=== PATIENT | female | born 1995 | race Caucasian/White ===

== ENCOUNTER → 2019-01-22 | Outpatient (CLI) | payer OTHER, SELFPAY ==
[2019-01-22 10:52] LABS: Hematocrit 40.5 % (37-47); Hemoglobin 13.9 g/dL (12.0-15.0); Mean Corp Hgb Conc 34.3 g/dL (32-36); Mean Corpuscular Hgb 30.2 pg (27.0-32.0); Mean Platelet Vol. 10.3 fl (6.2-12.0); Platelet Count 205 K/mm3 (150-450); RBC Distribution Width SD 38.6 fl (35.1-43.9); White Blood Count 10.7 K/mm3 (4.4-11.0)
[2019-01-22 11:07] LABS: Glucose Challenge Gest 1H 50g 183 mg/dL (70-140)
== END | disposition home or self-care (01) ==
LOC: WOBLAB 09:54
PROVIDERS: Visit Provider Obstetrics & Gynecology
DX: Z34.83 Encounter for supervision of other normal pregnancy, third trimester (principal)
CPT/HCPCS: 36415; 82950; 85027

== ENCOUNTER → 2019-01-30 | Outpatient (CLI) | payer OTHER, SELFPAY ==
[2019-01-30 07:34] LABS: Glucose GTT-Gestation. Fasting 110 mg/dL (<105)
[2019-01-30 10:18] LABS: Glucose GTT-Gestational 2 Hr 173 mg/dL (<165)
[2019-01-30 10:28] LABS: Glucose GTT-Gestational 1 Hr 173 mg/dL (<190)
[2019-01-30 10:46] LABS: Glucose GTT-Gestational 3 Hr 155 L (<145)
== END | disposition home or self-care (01) ==
LOC: LAB 06:53
PROVIDERS: Referring Provider Obstetrics & Gynecology; Visit Provider Obstetrics & Gynecology
DX: O24.912 Unspecified diabetes mellitus in pregnancy, second trimester (principal); Z3A.00 Weeks of gestation of pregnancy not specified
CPT/HCPCS: 36415; 82951; 82952

== ENCOUNTER 2019-03-16 15:00 | Outpatient (RCR) | payer OTHER, SELFPAY | END 2019-03-17 23:59 | LOC: DC 15:00 | PROVIDERS: Visit Provider Obstetrics & Gynecology | DX: O24.419 Gestational diabetes mellitus in pregnancy, unspecified control (principal) | CPT/HCPCS: 97802; G0108 ==

== ENCOUNTER 2019-03-23 16:14 | Outpatient (RCR) | payer OTHER, SELFPAY | END 2019-03-23 23:59 | disposition home or self-care (01) | LOC: DC 16:14 | PROVIDERS: Visit Provider Obstetrics & Gynecology | DX: Z71.3 Dietary counseling and surveillance (principal); O24.419 Gestational diabetes mellitus in pregnancy, unspecified control ==

== ENCOUNTER → 2019-03-27 13:22 | Outpatient (CLI) | payer OTHER, SELFPAY | PROVIDERS: Visit Provider Obstetrics & Gynecology | DX: Z36.85 Encounter for antenatal screening for Streptococcus B (principal) | CPT/HCPCS: 87081 ==

== ENCOUNTER 2019-04-09 19:40 | Inpatient (IN) | payer OTHER, SELFPAY ==
[2019-04-09] MEDS: Lactated Ringers 1,000 ML 50 ML IV (21:00)
[2019-04-09 21:16] LABS: Absolute Lymphocyte Count 2.68 X10^3/uL (0.83-4.51); Absolute Neutrophil Count 8.9 X10^3/uL (2.0-7.7); Basophil# 0.02 X10^3/uL; Basophil% 0.2 % (0-1); Eosinophil# 0.13 X10^3/uL; Hematocrit 38.4 % (37-47); Hemoglobin 12.6 g/dL (12.0-15.0); Lymphocyte # 2.68 X10^3/ul (4.0); Lymphocyte % 21.2 % (19-41); Mean Corp Hgb Conc 32.8 g/dL (32-36); Mean Corpuscular Hgb 27.3 pg (27.0-32.0); Mean Corpuscular Volume 83.3 fL (81-99); Mean Platelet Vol. 11.5 fl (6.2-12.0); Monocyte# 0.82 X10^3/uL; Monocyte% 6.5 % (0-10); NRBC Flagged by Analyzer 0 % (0-5); Neutrophil # 8.85 X10^3/uL (2.7-7.7); Neutrophil % 70.1 % (47-70); Platelet Count 201 K/mm3 (150-450); RBC Distribution Width SD 38.5 fl (35.1-43.9); Red Blood Count 4.61 M/mm3 (4.2-5.4); White Blood Count 12.6 K/mm3 (4.4-11.0)
[2019-04-09 21:32] VITALS: BMI 26.6
[2019-04-09] MEDS: miSOPROStol 25 MCG TABLET PO (22:50)
[2019-04-09 23:05] LABS: Bedside Glucose 82 mg/dL (70-110)
[2019-04-09 23:05] LABS: Bedside Glucose 92 mg/dL (70-110)
--- NOTE | 2019-04-09 23:47 | PCM.HP.BLA ---
History and Physical Date of Admission: 04/09/19 ACOG ANTEPARTUM RECORD - HISTORY AND PHYSICAL (04/09/2019) Name: JO HURLEY OB Physician: MONIQUE Belfield's Physician: UNDECIDED ...................................................................... : 1995 Age: 23 Address: [address] [place] [address] Phone: H) [phone] Insurance Carrier: [employer] [id number] Emergency Contact: GAEL GIMENEZ [phone] ...................................................................... Jo is a 23 yo at 39w0d gestation by 9w4d US being admitted for cervical ripening/IOL for dx of gestational diabetes managed with diet and PO Glyburide with minimal to moderate control; she is group B negative and O positive Final HENEA: 04/16/19 By Ultrasound: 90w4d PARITY: (G-Total Pregnancies P-Fullterm,Premature,Induced AB,Spont AB, Ectopics, Multiple,Living) HEENA CONFIRMATION: By LMP: 07/04/18 By First Ultrasound Exam: 04/16/19 Final HEENA: 04/16/19 OB PROBLEM LIST: Chicken Pox vaccine only Childbirth ed classes encouraged EPDS = 8 Gestational diabetes Going to [place] next week, plans return to [place] in , eventual move to [place] after delivery. Previously declined CF testing, msAFP. Progenity Trasferred in at 20 wks. EDC confirmed by 9 wk sono, labs done at prior provider's ofc. Undecided feeding method. ALLERGIES: No Known Drug Allergies MEDICATIONS: glyburide 1.25 mg tablet 1 tab PO qam promethazine 12.5 mg tablet one tablet every 6 hrs as needed pyridoxine (vitamin B6) 25 mg tablet one tablet TID Unisom (doxylamine) 25 mg tablet 1/2 tablet PO BID SOCIAL HISTORY: Smoking - Never Alcohol Use - denies drinking Diet - moderate, balanced diet Lifestyle - moderate stress lifestyle, single and recent relocation Exercise - minimal Employer - [employer] Job Description - Illicit Drug Use - denies use of street drugs Sexual Activity - [employer] Residence - Lives with SO's dad Place of - [place], [place] Spouse-Sig Other Name - Geoff Kingsley Spouse-Sig Other Occupation - Pipeline worker Spouse-Sig Other Phone No - [phone] PRIOR DELIVERY HISTORY DEL DATE GEST LAB WT LB WT OZ TYPE ANES LABOR TX ANTEPARTUM FLOW CHART VISIT GE RTC FU F F LA U U DATE WK MD WKS HT PN HR M SS BP ED WT LA GL D EF ST __ ____ ___ __ __ ___ __ __ __ ___ __ __ __ ___ __ 17 Mar CH 6 35 V + + 116/74 sl 164 - - 1+ 25 hi 10 Mar SHM 1 34 V + + 110/62 sl 163 tr - 1+ 25 -4 Feb CH 2 35 V + + 102/80 162 tr - 10 Feb CH 2 31 + + 102/80 0 159 tr - 03 Mar 17 SHM 1 30 + + 94/76 0 158 tr + 15 Feb 13 SHM 3 29 V + + 128/80 sl 159 - 3+ 07 Feb 12 SHM 3 28 ? + + 124/72 sl 156 - 3+ 17 Jan 09 ELB 4 24 - + + 116/70 0 153 tr - 13 Sep 20 SHM 4 20 + + 108/76 0 150 - - 09 Sep 19 SHM 1 V on + 110/74 0 147 tr - ANTEPARTUM NOTE(S): Apr 03 2019: Blood sugar log copied for review. Mar 27 2019: Uncomfortable, GBS today, LARC declined Mar 09 2019: feeling well Feb 24 2019: feeling well. Feb 17 2019: feeling well. Jan 30 2019: doing well, records provided, 3hr gtt today Jan 22 2019: doing well, glucola today Jan 01 2019: see prog note Nov 28 2018: doing well, comp u/s today. jlb Nov 24 2018: NOB transfer visit COMPREHENSIVE ANTEPARTUM NOTE(S): Apr 03 2019: Jo is here for her NST for GDM (Glyburide) at 38 w 1 d. She states that she feels alright and is anxious for the the baby to be born. Blood sugars copied for review. EEFM/NST explained. Baby is very active. She reports occasional mild cramping. Denies spotting/LoF. Slight edema noted below knees. NST reactive, read per Govind Waldrop CNM. Four ctx's noted during NST, last 60 seconds, Jo states that she did not feel these ctx's. AW Apr 03 2019: Reports +FM. FHR 140. Diabetic log reveals most fasting BS 80-90. Postprandials 100-140 max. Understands she doesnt eat the healthiest. Wants induced at 39.0 per her recommendation with REKHA. Will collaborate for decision making with REKHA. Unable to strip membranes due to funneling cervix, understands will need to come in for cervical ripening. Scheduled 04/09/19 at 7pm. -CH Mar 30 2019: H taken to OB. tkg Mar 27 2019: Copy of blood sugars for review with Dr DA SILVA. She declines LARC at this time. She would like to discuss further with Dr DA SILVA. We reviewed FM, SROM, and labor. Very uncomfortable at this point and reviewed normal discomforts and when to call. LMT Mar 27 2019: GBS obtained. Blood sugars 68% at target since last visit, however improved the last week 82%. Will add Glyburide 1.25mg qam. US today. EFW 2548 gms Mar 09 2019: (*) Here for routine PNV.Has blood sugar logs which reveal blood sugars are better than before, but still elevated . has been tracking her diet and doing much better, but had her start logging all her food. She's still eating out every single day including [employer], [place] [employer], and deep fried bar food as well as a lot of pastas and breads at home. Educated that although she is doing better, she needs to try to decrease fast food and eating out as well as switching carbs to whole grain.. +FM. FHR 148. Discussed to call with any questions or concerns. Danger signs of decreased FM, bleeding, or regular UC. In 2 weeks will return for routine PNV and GBS swab. Education on GBS and reason for collection. Understands may swab herself in bathroom prior to urinating or provider can do swab for her and offer cervical exam at that time. Discussed avoiding being overdue and membrane sweeping after 38 weeks as an option. - CH Mar 08 2019: (*) Here for routine PNV. Has blood sugar logs which reveal . has been tracking her diet and doing much better. +FM. FHR . Discussed to call with any questions or concerns. Danger signs of decreased FM, bleeding, or regular UC. In 2 weeks will return for routine PNV and GBS swab. Education on GBS and reason for collection. Understands may swab herself in bathroom prior to urinating or provider can do swab for her and offer cervical exam at that time. - Feb 24 2019: here today for routine PNV with BS logs. Elevated fastings and post-prandials still. States just went to talk to jack machine operator yesterday and just started actually watching her diet today. Yesterday had an apple and peanut butter for breakfast, [employer] for lunch, and McDonal[employer] for dinner. Her and SO definitely know this is wrong and swear as of today they are watching what they eat and will keep a diet log to track food intake. For subsequent visits will bring both BS logs and diet logs to review with Dr. Ernst. Educated on exercise, even a 10 minute walk after meals. FM+ FHR 138. Will return in 2 weeks for routine PNV - Feb 17 2019: Fasting blood sugars elevated. Discussed evening snack, avoidance of added sugars. Few postprandial elevations. f/u with DM education this week. Jan 30 2019: Gestational DM. Rx glucometer, test strips, lancets - reviewed fasting and 1h postprandial blood sugar checks. Reviewed associated risks for GDM including hypoglycemia - potential short and superintendent terminal effects for neurologic development, risk for shoulder dystocia and potential sequelae including loss of life. Refer to jack machine operator. Jan 22 2019: Ok to fly to [place] and [place] later this month and early Feb. Discussed VTE prevention. PTL, ROm, FM precautions. Labor analgesia reviewed. Jan 01 2019: Jo is here today for her visit. Patient states that she has been doing well. Glucola instructions provided and reviewed with patient. Patient states that she will be needing refill on Vitamin B and Unisom which previous provider was prescribing. Scripts updated in medication list and pharmacy updated on chart. jlb Nov 28 2019: Anatomy scan wnl. AGA, FEMALE, POSTERIOR placenta. Nov 24 2018: Jo is here at 19 w 4 d for her NOB transfer visit, she is a with an HEENA of 04/16/2019. FOB/SO, Geoff Kingsley, accompanies her today; this is also his first child. He seems to be supportive. Geoff is a pipe telecommunications line installer, so his job moves them around frequently. They are currently staying with Geoff's father in [place], but next week they will be going to [place] for his job, and will live in a camper. Jo plans to return to the area in January, and deliver at [facility]. She plans a move back to [place] after her post- period. Discussed air travel and long car ride precautions, including getting up to move around often, wearing compression hose, and staying well hydrated. Office practice patterns reviewed, her labs were drawn at her previous provider. Office educational materials provided today, including a copy of What to Expect...; reviewed emergencies/danger signs to report, and common OTC medications approved not approved for use during . Round ligament pain, and reporting suspected UTI also discussed. Delivery at [facility] with an epidural is planned, and at this point she is undecided about feeding method. If she decides to breastfeed, getting a class either here in the office or through [facility] strongly encouraged. Office childbirth ed classes encouraged. Jo states that she had a lot of N/V during her first trimester, and that some still lingers. She has been taking prescribed Vitamin B6 25 mg TID, and Unisom 25 mg 25 mg 1/2 tab in the morning and mid-afternoon; she also takes OTC Unisom at bedtime, and has a prescription for Promethazine 12.5 mg one q 6 hrs prn. Encouraged small frequent meals with protein included throughout the day and adequate water hydration of at least 1 gallon per 24 hours. She eats carb rich foods when nauseated. Jo states that she has been having difficulty with tolerating her vitamin, encouraged to try taking it just before bedtime with a full glass of water. Discussed that she may also try two children's [place]'s Chewables a day until her nausea resolves. Reviewed need for DHA in her vitamin before the beginning of her third trimester. Jo is a non-smoker, and denies use of drugs or ETOH. Genetic Screening form completed, no significant history noted. She declined at her previous health care provider, as well as today, CF testing and msAFP; consent signed as such. EPDS = 8 today. She denies history of depression/anxiety. Has tattoos and some piercings, advised no new tattoos or piercings during . Water and dietary needs for reinforced, including caloric needs, recommended weight gain. and limiting caffeine to one cup a day. Printed guide for food safety provided with review. Encouarged physical activity, such as walking, for 30 minutes 5 x/week. Kegel exercises explained. Lifting restrictions discussed. Jo states that she understands all information provided during NOB visit, and she has no questions following same. Plans 4-D US in [place] on Saturday this week. AW REVIEW OF SYSTEMS: GENERAL - Denies fever, or chills SKIN - Denies rash, new skin lesions, or change in moles EYES - Denies blurred vision, or change in visual acuity EARS - Denies ear pain, or difficulty hearing NOSE - Denies nasal congestion, discharge, or bleeding MOUTH - Denies sore throat, or difficulty swallowing NECK - Denies pain or swelling RESPIRATORY - Denies shortness of breath, cough, wheezing CARDIOVASCULAR - Denies palpitations, chest pain, orthopnea, PND, peripheral edema, syncope or claudication GASTROINTESTINAL - Denies nausea, vomiting, diarrhea, constipation, Denies abdominal pain, melena and or bright red blood GENITOURINARY - Denies dysuria, frequency of urination, urgency, or hesitancy MUSCULOSKELETAL - Denies joint or muscle pain, or back pain NEUROLOGICAL - Denies localized numbness, weakness, or tingling PSYCHIATRIC - Denies depression, anxiety, substance abuse or suicide attempts ENDOCRINE - Denies heat or cold intolerance, weight loss or gain, increasing thirst HEMATO-IMMUNOLOGIC - Denies easy bruising, bleeding, oral ulcerations or recurrent infections GENETICS SCREENING: Age 35+ years: No Thalassemia: No Neural Tube Defect: No Down Syndrome: No TULIO-SACHS: No Sickle Cell Disease: No Hemophilia: No Musc. Dystrophy: No Cystic Fibrosis: No-declines screening [place] Chorea: No Mental Retardation: No Fragile X: No Other genetic: No Other defects: No SABs/still births: No Drugs since LMP: No INFECTION HISTORY: High risk AIDS: No High risk Hepatitis: No Exposed to TB: No Exposed to Herpes: No Rash/viral illness since LMP: No History of STD: No MENSTRUAL HISTORY: *Menses Amount/Duration: 4-5 DAYSMenses Regularity: RegularFrequency: 28BCP's at Conception: NoMenarche (Age Onset): 13* PAST SUMMARY: PARITY: 1. Total Pregnancies............ 1 2. Full Term Pregnancies........ 0 3. Premature.................... 0 4. Abortions - Induced.......... 0 5. Abortions - Spontaneous...... 0 6. Ectopics..................... 0 7. Multiple Births.............. 0 8. Living Children.............. 0 Labs for : JO HURLEY since 07/20/2018 ORDER DATEIN DESCRIPTION VALUE UNITS RANGE A+ COMMENT BEDSIDE GLUCOSE 04/09/19 NOTE Original Ordering Provider: NANCY Stephenson BEDSIDE GLU 82 mg/dL 70-110 MANAGEMENT OF PATIENT CARE PER NURSING PROTOCOL NOTE Original Ordering Provider: NANCY Stephenson BEDSIDE GLU 92 mg/dL 70-110 MANAGEMENT OF PATIENT CARE PER NURSING PROTOCOL TYPE AND SCREEN 04/09/19 Reason for Type AND Screen/Red Cells: Labor [facility]~[address] [place], [address]~ BLOOD TYPE GEL O POSITIVE N ANTIBODY SCREEN NEGATIVE N CBC W/DIFF, AUTOMATED 04/09/19 NOTE Original Ordering Provider: NANCY Stephenson WBC 12.6 K/mm3 4.4-11.0 H RBC 4.61 M/mm3 4.2-5.4 HGB 12.6 g/dL 12.0-15.0 HCT 38.4 % 37-47 MCV 83.3 fL 81-99 MCH 27.3 pg 27.0-32.0 MCHC 32.8 g/dL 32-36 RDW CV 13.0 % 11.6-14.6 RDW SD 38.5 fl 35.1-43.9 PLT 201 K/mm3 150-450 MPV 11.5 fl 6.2-12.0 NEUT% 70.1 % 47-70 H LY% 21.2 % 19-41 MONO% 6.5 % 0-10 EO% 1.0 % 0-5 BASO% 0.2 % 0-1 IM GRAN % 1.000 % 0.0-0.9 H IG% - Immature Granulocytes (promyelocytes, myelocytes and metamyelocytes) > 1% indicates that a LEFT SHIFT is Present. ABSOLUTE NEUT 8.9 X10 3/uL 2.0-7.7 H ABSOLUTE LYMPH 2.68 X10 3/uL 0.83-4.51 NRBC, FLAGGED 0 % 0-5 CULTURE, GROUP B STREPTOCOCCUS 03/27/19 NOTE Original Ordering Provider: Irma Ernst Comments: VAGINAL/RECTAL DAVID Culture Group B Beta Streptococcus is not isolated. Reviewed by IRMA GESTATIONAL GTT 3HR 100G 01/30/19 NOTE Original Ordering Provider: Irma Ernst GLU GTT-FASTING 110 mg/dL <105 H GLUCOSE TOLERANCE TEST FOR Reference Interval GESTATIONAL DIABETES Fasting <105 mg/dL 1 hour <190 mg/dl 2 hour <165 mg/dl 3 hour <145 mg/dl GLU GTT- 1HR 173 mg/dL <190 GLU GTT- 2HR 173 mg/dL <165 H GLU GTT- 3HR 155 L <145 H Reviewed by IRMA GLUCOSE CHALLENGE GEST 1H 50G 01/22/19 NOTE Original Ordering Provider: Irma Ernst GLU GEST 50G 1H 183 mg/dL 70-140 H Reviewed by IRMA CBC-COMPLETE BLOOD CNT NO DIFF 01/22/19 NOTE Original Ordering Provider: Irma Ernst WBC 10.7 K/mm3 4.4-11.0 RBC 4.60 M/mm3 4.2-5.4 HGB 13.9 g/dL 12.0-15.0 HCT 40.5 % 37-47 MCV 88.0 fL 81-99 MCH 30.2 pg 27.0-32.0 MCHC 34.3 g/dL 32-36 RDW CV 12.0 % 11.6-14.6 RDW SD 38.6 fl 35.1-43.9 PLT 205 K/mm3 150-450 MPV 10.3 fl 6.2-12.0 Reviewed by IRMA GC-Chlamydia 09/30/18 Chlamydia NEG Negative GC NO GROWTH No Growth Reviewed by IRMA Drug Screen 09/02/18 Marijuana NEG Negative Cocaine NEG Negative Amphetamines NEG Negative Barbituates NEG Negative Reviewed by NIELS Initial OB Labs 09/02/18 Blood Type O Rh Type POS Antibody Screen NEG Negative Hemoglobin Initial OB 15.3 Hematocrit Initial OB 44 PLT 226 Rubella IMMUNE Immune VDRL NON-REACTIVE Non Reactive HBsAg NEG Negative HIV Test NEG Negative Reviewed by NIELS PROVIDER SIGNATURE ( REQUIRED) PHYSICAL EXAMINATION General Appearence: 23 yo female in no acute distress Vital Signs: AF, VSS Heart: RRR without rubs or gallops Lungs: CTA x 2 Breasts: deferred Abdomen: gravid Pelvis: Cervix:1/60/-3 at 2117 per RN Presentation: cephalic Fetus: Size: AGA Movement: present Heart: 145 baseline, moderate variability, + accels, no decels upon admission to unit UCs: Q 5-8 minutes Impression: 23 yo at 39w0d gestation by 9w4d Gestational diabetes on Glyburide Group B negative O pos Plan: Admitted for cytotec cervical ripening/IOL Dr. Ernst to assume care in AM.
[2019-04-10 03:46] LABS: Bedside Glucose 84 mg/dL (70-110)
[2019-04-10] MEDS: miSOPROStol 25 MCG TABLET 50 MCG PO (03:48)
[2019-04-10] MEDS: fentaNYL 100 MCG/2 ML Ampul IV (04:47)
[2019-04-10 07:51] LABS: Bedside Glucose 75 mg/dL (70-110)
[2019-04-10] MEDS: Lactated Ringers 500 ML 999 ML IV ×2 (08:54→12:09)
--- NOTE | 2019-04-10 09:00 | PCM.PN.BLA ---
Progress Note LABOR PROGRESS NOTE Assumed care of patient at 0730h from Micaela Stephenson CNM. Patient reports contractions intensifying and requests epidural. AVSS GEN - NAD, AAO x 3 FHR 130, moderate variability, +accelerations, no decelerations SVE 4/80/-2 per RN exam TOCO 3/10 min A/P: 23yo G1 @ 39wga, hx GDMA2 in active labor s/p cytotec, Cat I FHR -Ruptured spontaneously this morning -Blood glucose controlled -Epidural per patient request -Maternal and statuses reassuring
[2019-04-10] MEDS: fentaNYL-bupivacaine (epidural) 100 ML BAG EPIDURAL ×2 (09:44→14:09)
[2019-04-10] MEDS: Ondansetron 4 MG/2 ML Vial IV (11:00)
[2019-04-10 11:56] LABS: Bedside Glucose 77 mg/dL (70-110)
[2019-04-10] MEDS: Amnioinfusion- 0.9% NS 1,000 ML IV.SOLN. 1000 ML INTRA-UTER (13:17)
[2019-04-10 14:00] LABS: Bedside Glucose 67 mg/dL (70-110)
[2019-04-10 15:06] LABS: Bedside Glucose 80 mg/dL (70-110)
[2019-04-10] MEDS: Oxytocin 30 units/NS 500 ml 30 UNITS/500 ML IV.SOLN 334 UNITS IV (15:52)
--- NOTE | 2019-04-10 17:19 | PCM.OPRPT ---
Problem List (1) 39 weeks gestation of Status: Acute (2) (spontaneous vaginal delivery) Status: Acute Report of Operation Date of Procedure: 04/10/19 Pre-Operative Diagnosis: 39 weeks gestation, gestational diabetes Post-Operative Diagnosis: 39 weeks gestation, gestational diabetes Surgery/Procedure Performed:: Description of Surgical Findings:: Patient was FD/+3 station and pushed to deliver a vigorous female over an intact perineum. was placed on the maternal abdomen and further attended by nursery personnel. The cord was doubly clamped and cut. Cord blood was obtained. The placenta delivered spontaneously and appeared intact on inspection. A right labial laceration was repaired with 3-0 Vicryl Rapide. Good hemostasis. perineum intact Uterus at 3 fw below umbilicus. Sponge and needle count correct x 2. Vaginal Delivery Maternal Presentation: Medically Indicated Induction Method of Induction: Cytotec Amniotic Membrane Rupture Type: Spontaneous Rupture of Membrane time: 0836h 04/10/19 Amniotic Fluid Description: Clear Final HEENA: 04/17/19 Final HEENA Source: US <20 weeks Gestational age: 39 Weeks and 0 Days Date of Procedure: 04/10/19 Surgery/ Procedure Performed: Spontaneous Vaginal Delivery Anesthesiologist: Haley Flores Type of Anesthesia: Epidural Presentation: Vertex Placental Delivery Description: Spontaneous Placenta Disposition: Routine to Lab Cord Vessel Description: 3 Vessels Cord Entanglement: None Drain: Siegel to straight drain Estimated Blood Loss: 350 ml Infant A gender: Female (1 minute): 8 (5 minute): 9 Episiotomy Description: None Medications given after delivery: IV Pitocin Complications: None
[2019-04-10 17:46] LABS: Bedside Glucose 79 mg/dL (70-110)
[2019-04-10 19:26] VITALS: BP 112/75; PULSE 80; RESP 18; TEMP 36.4; O2SAT 98
--- NOTE | 2019-04-10 20:38 | NURSING ---
Labial laceration well approximated.
[2019-04-10 23:28] VITALS: BP 114/70; PULSE 64; RESP 18; TEMP 37.2; O2SAT 96
--- NOTE | 2019-04-10 23:47 | NURSING ---
Labial laceration well approximated.
[2019-04-11 04:23] VITALS: BP 119/79; PULSE 84; RESP 18; TEMP 36.6; O2SAT 99
--- NOTE | 2019-04-11 04:23 | NURSING ---
Labial laceration well approximated.
[2019-04-11] MEDS: Acetaminophen 500 MG Tablet 1000 MG PO (05:03)
[2019-04-11 05:24] LABS: Hematocrit 36.9 % (37-47); Hemoglobin 12.4 g/dL (12.0-15.0); Mean Corp Hgb Conc 33.6 g/dL (32-36); Mean Corpuscular Hgb 28.2 pg (27.0-32.0); Mean Corpuscular Volume 83.9 fL (81-99); Mean Platelet Vol. 11.8 fl (6.2-12.0); Platelet Count 169 K/mm3 (150-450); RBC Distribution Width CV 13.1 % (11.6-14.6); RBC Distribution Width SD 39.2 fl (35.1-43.9); White Blood Count 15.6 K/mm3 (4.4-11.0)
[2019-04-11 06:46] LABS: Bedside Glucose 85 mg/dL (70-110)
[2019-04-11 08:34] VITALS: BP 111/68; PULSE 69; RESP 16; TEMP 36.2; O2SAT 97
--- NOTE | 2019-04-11 08:36 | NURSING ---
Right labial tear approximated
--- NOTE | 2019-04-11 10:07 | PCM.PN.OB ---
Patient Problems: Active and Suspected Problems 39 weeks gestation of (Acute) (spontaneous vaginal delivery) (Acute) Subjective: No issues overnight. Pain is controlled. Denies heavy lochia. OOB, no difficulty voiding. latching well. Objective: avss - Physical Exam Vitals/I&O's: Vital Signs Temp Pulse Resp BP Pulse Ox 97.2 F L 69 16 111/68 97 04/11/19 08:34 04/11/19 08:34 04/11/19 08:34 04/11/19 08:34 04/11/19 08:34 Oxygen Delivery Method Room Air Weight: 77.02 kg Body Mass Index (BMI) 26.6 Intake and Output for Last 24 Hours 04/09/19 04/10/19 04/11/19 23:59 23:59 23:59 Intake Total 4.17 / 4.17 2495.83 / 2495.83 Output Total 1550 / 1550 900 / 900 Balance 4.17 / 4.17 945.83 / 945.83 -900 / -900 General: Alert, Oriented x3, Cooperative, No apparent distress HEENT: Atraumatic, Normocephalic Lungs: Clear to auscultation, Normal air movement Cardiovascular: Regular rate, Regular Rhythm, Normal S1, Normal S2 Abdomen: Soft, Non Tender, Non-Distended, - - Fundus firm and nontender, lochia scant Extremities: No edema, No Calf Tenderness Neurological: Neuro grossly intact Psych/Mental Status: Normal Affect, Appropriate, Alert and oriented to time, place, person, mood and affect Laboratory Results 04/10/19 11:35: POC Glucose 77 04/10/19 13:52: POC Glucose 67 L 04/10/19 14:59: POC Glucose 80 04/10/19 17:17: POC Glucose 79 04/11/19 05:00: WBC 15.6 H, RBC 4.40, Hgb 12.4, Hct 36.9 L, MCV 83.9, MCH 28.2, MCHC 33.6, RDW Std Deviation 39.2, RDW Coeff of Anthony 13.1, Plt Count 169, MPV 11.8 04/11/19 06:23: POC Glucose 85 Current Medications Acetaminophen (Tylenol) 325 - 650 mg PO Q4H PRN PRN PRN Reason: Pain Score 1-3/10 Acetaminophen (Tylenol) 1,000 mg PO Q8H PRN PRN PRN Reason: Pain Score 1-3/10 Last Admin: 04/11/19 05:03 Dose: 1,000 mg Documented by: Bisacodyl (Dulcolax) 10 mg RECTAL UD PRN PRN Reason: If no BM Dibucaine (Dibucaine) 1 applic TOPICAL TID PRN PRN; Protocol PRN Reason: Discomfort Hydrocortisone (Hytone) 1 applic TOPICAL TID PRN PRN; Protocol PRN Reason: Discomfort Ibuprofen (Motrin) 600 mg PO Q6H PRN PRN PRN Reason: Pain Score 1-3/10 Methylergonovine Maleate (Methergine) 0.2 mg IM X1 PRN PRN Reason: Excess bleeding/uterine atony Ondansetron HCl (Zofran) 4 mg IV Q4H PRN PRN PRN Reason: NAUSEA Last Admin: 04/10/19 11:00 Dose: 4 mg Documented by: Multivit/Folic Acid/Iron (Prenatabs Fa) 1 tablet PO DAILY@1200 VIRGILIO Senna/Docusate Sodium (Senokot-S, Tracy-Colace) 1 - 2 tablet PO DAILY PRN PRN PRN Reason: Constipation Simethicone (Mylicon) 80 mg PO PCHS PRN PRN Reason: Indigestion/Stomach pain Sodium Chloride () 5 - 15 ml IV UD PRN PRN Reason: SALINE FLUSH Medical Necessity - Tobacco Use Smoking Status: Never smoker Assessment/Plan All Active Problems 39 weeks gestation of (Acute) (spontaneous vaginal delivery) (Acute) 23yo PPD#1 s/p doing well. -Rh positive -Fasting glucose in am -Routine care -
[2019-04-11 12:05] VITALS: BP 98/66; PULSE 87; RESP 16; TEMP 36.4; O2SAT 95
[2019-04-11] MEDS: Prenatal Vits Tablet 1 TABLET PO (12:08)
[2019-04-11 16:25] VITALS: BP 112/75; PULSE 82; RESP 16; TEMP 36.8; O2SAT 96
--- NOTE | 2019-04-11 16:51 | NURSING ---
Right labial tear approx.
[2019-04-11 20:23] VITALS: BP 120/75; PULSE 65; RESP 16; TEMP 36.4
--- NOTE | 2019-04-11 20:38 | NURSING ---
laceration description- right labial
[2019-04-12 02:00] VITALS: BP 112/66; PULSE 54; RESP 16; TEMP 36.4
[2019-04-12 06:10] LABS: Bedside Glucose 86 mg/dL (70-110)
[2019-04-12 08:40] VITALS: BP 114/74; PULSE 75; RESP 18; TEMP 36.4
--- NOTE | 2019-04-12 08:40 | NURSING ---
right labial laceration well approximated
[2019-04-12] MEDS: Senna/Docusate Sodium 1 Tablet PO (08:41)
[2019-04-12] MEDS: Acetaminophen 500 MG Tablet 1000 MG PO (08:41)
--- NOTE | 2019-04-12 08:52 | PCM.PN.OB ---
Patient Problems: Active and Suspected Problems 39 weeks gestation of (Acute) (spontaneous vaginal delivery) (Acute) Subjective: Difficulty latching yesterday, but improved by the end of the day. She has no complaints and feels well. Denies heavy lochia. Objective: avss - Physical Exam Vitals/I&O's: Vital Signs Temp Pulse Resp BP Pulse Ox 97.6 F L 54 L 16 112/66 96 04/12/19 02:00 04/12/19 02:00 04/12/19 02:00 04/12/19 02:00 04/11/19 16:25 Oxygen Delivery Method Room Air Weight: 77.02 kg Body Mass Index (BMI) 26.6 Intake and Output for Last 24 Hours 04/10/19 04/11/19 04/12/19 23:59 23:59 23:59 Intake Total 2495.83 / 2495.83 Output Total 1550 / 1550 900 / 900 Balance 945.83 / 945.83 -900 / -900 General: Alert, Oriented x3, Cooperative, No apparent distress HEENT: Atraumatic, Normocephalic Lungs: Normal air movement Cardiovascular: Regular rate, Regular Rhythm, Normal S1, Normal S2 Abdomen: Soft, Non Tender, Non-Distended, - - Fundus firm and nontender Extremities: No edema, No Calf Tenderness Neurological: Neuro grossly intact Psych/Mental Status: Normal Affect, Appropriate, Alert and oriented to time, place, person, mood and affect Laboratory Results 04/12/19 06:03: POC Glucose 86 Current Medications Acetaminophen (Tylenol) 325 - 650 mg PO Q4H PRN PRN PRN Reason: Pain Score 1-3/10 Acetaminophen (Tylenol) 1,000 mg PO Q8H PRN PRN PRN Reason: Pain Score 1-3/10 Last Admin: 04/12/19 08:41 Dose: 1,000 mg Documented by: Bisacodyl (Dulcolax) 10 mg RECTAL UD PRN PRN Reason: If no BM Dibucaine (Dibucaine) 1 applic TOPICAL TID PRN PRN; Protocol PRN Reason: Discomfort Hydrocortisone (Hytone) 1 applic TOPICAL TID PRN PRN; Protocol PRN Reason: Discomfort Ibuprofen (Motrin) 600 mg PO Q6H PRN PRN PRN Reason: Pain Score 1-3/10 Methylergonovine Maleate (Methergine) 0.2 mg IM X1 PRN PRN Reason: Excess bleeding/uterine atony Ondansetron HCl (Zofran) 4 mg IV Q4H PRN PRN PRN Reason: NAUSEA Last Admin: 04/10/19 11:00 Dose: 4 mg Documented by: Multivit/Folic Acid/Iron (Prenatabs Fa) 1 tablet PO DAILY@1200 VIRGILIO Last Admin: 04/11/19 12:08 Dose: 1 tablet Documented by: Senna/Docusate Sodium (Senokot-S, Rtacy-Colace) 1 - 2 tablet PO DAILY PRN PRN PRN Reason: Constipation Last Admin: 04/12/19 08:41 Dose: 2 tablet Documented by: Simethicone (Mylicon) 80 mg PO PCHS PRN PRN Reason: Indigestion/Stomach pain Sodium Chloride () 5 - 15 ml IV UD PRN PRN Reason: SALINE FLUSH Medical Necessity - Tobacco Use Smoking Status: Never smoker Assessment/Plan All Active Problems 39 weeks gestation of (Acute) (spontaneous vaginal delivery) (Acute) 23yo PPD#2 s/p doing well. -Rh positive -hx GDM, fasting glucose wnl -Routine care - -d/c home today
--- NOTE | 2019-04-12 10:28 | DCINST_ITS ---
Discharge Diet: No Restrictions Discharge Activity: Return to Normal Activity, May Shower, May Take a Tub Bath May resume sexual activity in: 6 weeks Additional Instructions: If you experience any of the following, contact your healthcare provider. * Bleeding that soaks a pad every hour for 2 hours * Fever 100.4 or higher * Unrelieved incision or abdominal pain * Swelling, redness, discharge or bleeding from your incision or episiotomy site * Your incision begins to separate * Problems urinating (including inability to urinate or burning while urinating). * Visual changes * Severe headache * Flu-like symptoms * Pain or redness in one of both of your breasts * Pain, warmth, tenderness or swelling in your legs, especially the calf area * Frequent nausea and vomiting * Symptoms of depression or anxiety If you experience any of the following, call 911 or go to the nearest Emergency Room. * Chest pain * Problems breathing * Seizure activity * Partial or complete paralysis of a body part, slurred speech, weakness or drooping of the face, or a sudden inability to walk or hold your balance Allergies/Adverse Reactions: Allergies No Known Allergies Allergy (Verified 04/09/19 21:33) Medications to take at Discharge Prenatabs FA 1 tab PO DAILY 04/09/19 Ibuprofen [Motrin] 600 mg PO TID PRN #30 tab 04/12/19 The following prescriptions were given: Ibuprofen [Motrin] 600 mg PO TID PRN #30 tab PRN Reason: Pain Score 1-10/10 Transmission Status: Pending to [id number] Please Follow Up With: Irma Ernst MD When: 2 weeks Primary Care Physician: Care Physician,No Primary [Primary Care Provider] - Test Results: Test results from this visit will be discussed in further detail at your follow- up appointment, if applicable.
--- NOTE | 2019-04-12 10:28 | PCM.DCVAG ---
Discharge Diet: No Restrictions Discharge Activity: Return to Normal Activity, May Shower, May Take a Tub Bath May resume sexual activity in: 6 weeks Additional Instructions: If you experience any of the following, contact your healthcare provider. Bleeding that soaks a pad every hour for 2 hours Fever 100.4 or higher Unrelieved incision or abdominal pain Swelling, redness, discharge or bleeding from your incision or episiotomy site Your incision begins to separate Problems urinating (including inability to urinate or burning while urinating). Visual changes Severe headache Flu-like symptoms Pain or redness in one of both of your breasts Pain, warmth, tenderness or swelling in your legs, especially the calf area Frequent nausea and vomiting Symptoms of depression or anxiety If you experience any of the following, call 911 or go to the nearest Emergency Room. Chest pain Problems breathing Seizure activity Partial or complete paralysis of a body part, slurred speech, weakness or drooping of the face, or a sudden inability to walk or hold your balance Allergies/Adverse Reactions: Allergies No Known Allergies Allergy (Verified 04/09/19 21:33) Medications to take at Discharge Prenatabs FA 1 tab PO DAILY 04/09/19 Ibuprofen [Motrin] 600 mg PO TID PRN #30 tab 04/12/19 The following prescriptions were given: Ibuprofen [Motrin] 600 mg PO TID PRN #30 tab PRN Reason: Pain Score 1-10/10 Transmission Status: Pending to [id number] Please Follow Up With: Irma Ernst MD When: 2 weeks Primary Care Physician: Care Physician,No Primary [Primary Care Provider] - Test Results: Test results from this visit will be discussed in further detail at your follow-up appointment, if applicable.
== END 2019-04-12 11:10 | disposition home or self-care (01) | DRG 807 ==
PROVIDERS: Advanced Practice Midwife; Admitting Provider Obstetrics & Gynecology; Referring Provider Obstetrics & Gynecology; Visit Provider Obstetrics & Gynecology
DX: O24.425 Gestational diabetes mellitus in childbirth, controlled by oral hypoglycemic drugs (principal); Z37.0 Single live birth; O70.0 First degree perineal laceration during delivery; Z3A.39 39 weeks gestation of pregnancy
CPT/HCPCS: 59050; 82962; 85025; 85027; 86850; 86900; 86901; 99218; J7030; J7120; G0378; J2405

== ENCOUNTER → 2019-05-22 | Outpatient (CLI) | payer OTHER, SELFPAY ==
[2019-05-29 11:22] LABS: HPV APTIMA, High Risk Negative (Negative)
[2019-05-29 11:23] LABS: HPV Reflexed? YES, CHARGE PATIENT
== END | disposition home or self-care (01) ==
LOC: LABSPEC 13:57
PROVIDERS: Visit Provider Obstetrics & Gynecology
DX: Z12.4 Encounter for screening for malignant neoplasm of cervix (principal)
CPT/HCPCS: 87624; 88175; G0145

== ENCOUNTER → 2020-06-02 13:20 | Outpatient (CLI) | payer OTHER, SELFPAY ==
[2020-06-02 16:12] LABS: Hemoglobin A1c 5.1 % (3.8-5.6)
== END ==
PROVIDERS: Visit Provider Obstetrics & Gynecology
DX: Z86.32 Personal history of gestational diabetes (principal)
CPT/HCPCS: 36415; 83036

== ENCOUNTER 2021-06-07 10:57 | Outpatient (CLI) | payer OTHER, BC, SELFPAY ==
[2021-06-12 15:58] LABS: HPV Reflexed? NOT INDICATED
== END 2021-06-07 23:59 | disposition home or self-care (01) ==
LOC: LABSPEC 10:58
PROVIDERS: Visit Provider Obstetrics & Gynecology
DX: Z12.4 Encounter for screening for malignant neoplasm of cervix (principal)
CPT/HCPCS: 88175; G0145

== ENCOUNTER → 2022-06-26 | Outpatient (CLI) | payer BC, SELFPAY ==
[2022-06-26 12:45] LABS: Hemoglobin A1c 5.4 % (3.8-5.6)
== END | disposition home or self-care (01) ==
LOC: WOBLAB 11:35
PROVIDERS: Visit Provider Obstetrics & Gynecology
DX: Z30.430 Encounter for insertion of intrauterine contraceptive device (principal)
CPT/HCPCS: 36415; 83036